=== PATIENT | female | born 1980 | race Caucasian/White ===

== ENCOUNTER 2025-06-21 15:20 | Emergency (ER) | payer BC, SELFPAY ==
--- NOTE | ~2025-06-21 | XR_ITS ---
CLINICAL HISTORY: palpitatins, dizzy 2 view chest x-ray Comparison: None provided Findings: The lungs are clear. Heart size is normal. No acute fracture. IMPRESSION: 1. No acute findings. This document has been electronically signed by: James Dickey MD on 06/21/2025 16:03:31
--- NOTE | ~2025-06-21 | CT_ITS ---
CLINICAL HISTORY: PE rule out CT angiography chest with contrast. 3D Postprocessing. Comparison: CR - XR CHEST 2V - 06/21/25 15:45 EDT Findings: The heart is normal size. RV/LV ratio is normal. Unremarkable thoracic aorta and great vessels. No aneurysm. No pulmonary artery filling defects. The visualized thyroid and mediastinum are unremarkable. Biapical cystic airspace disease. No consolidation or effusion. The upper abdomen is unremarkable. The bones are intact. IMPRESSION: 1. No pulmonary emboli. This document has been electronically signed by: Abraham Paulino MD on 06/21/2025 21:40:41
--- NOTE | 2025-06-21 15:24 | ECG_ITS ---
Test Reason : PALPITATIONS Blood Pressure : */* mmHG Vent. Rate : 81 BPM Atrial Rate : 81 BPM P-R Int : 128 ms QRS Dur : 62 ms QT Int : 358 ms P-R-T Axes : 89 75 60 degrees QTcB Int : 415 ms Normal sinus rhythm with sinus arrhythmia Right atrial enlargement Nonspecific ST abnormality Abnormal ECG No previous ECGs available Referred By: Rae Florence Electronically Signed By: CHRISTOPHER CAMARA MD
[2025-06-21 15:32] VITALS: BP 131/60; PULSE 87; RESP 18; TEMP 36.3; O2SAT 100; BMI 19.8
--- NOTE | 2025-06-21 15:34 | ED.GENADULT ---
[facility] - General Adult General Chief complaint: Arrhythmia/Palpitations Stated complaint: irregular heart beat, dizziness Time Seen by Provider: 06/21/25 18:04 Source: patient Mode of arrival: ambulatory Limitations: no limitations History of Present Illness ED Provider: Dr. Buck [facility] narrative: 44-year-old female no medical history presented hospital today for evaluation of 1 week of intermittent tachycardia palpitation lightheadedness. Patient has noted that her lightheadedness worsened when she stands up and ambulates. Patient is also having some nausea associated with the symptoms. Patient is complaining of aches between her shoulders. She had a recent travel to [place]. Related Data Previous Rx's ?Medication ?Instructions ?Recorded zolpidem 5 mg tablet (Ambien) 5 mg PO BEDTIME PRN insomnia #5 06/21/25 tabs Allergies Allergy/AdvReac Type Severity Reaction Status Date / Time No Known Allergies Allergy Verified 06/21/25 15:35 Review of Systems Review of Systems: Pertinent review of systems as mentioned in HPI. All other system otherwise negative. [facility] Past Medical History [facility] Narrative: Medical history as mentioned in [facility] Social History Social History Smoked in Last 30 Days: No Use of substances other than those prescribed or required for medical reasons: No Advance Directives: No Advance Directives Information Provided: No Patient : No Physical Exam ED Exam Exam: General: Pleasant, no distress, interacting appropriately Head: Normacephalic, atraumatic ENT: oral mucosa moist, neck supple, no tracheal deviation Cardiovascular: regular rate, regular rhythm, no murmurs, rubbing, gallops Respiratory: CTAB, no wheeze, rales, rhonchi Gastrointestinal: Soft, non distended, non tender, non guarding Extremities: No limb pain or swelling, no calf tenderness Neurological: Awake and alert, no facial droop noted Skin: Warm and dry Psychiatric: Appropriate mood and thoughts Vital Signs: Vital Signs - 24 hr 06/21/25 15:32 06/21/25 18:39 06/21/25 21:30 Temperature 97.4 F 98.0 F 97.8 F Pulse Rate 87 69 62 Respiratory Rate 18 16 16 Blood Pressure 131/60 102/65 104/52 L Pulse Oximetry 100 100 100 Oxygen Delivery Method Room Air Room Air Room Air BMI result Body Mass Index 19.8 Course Course Course Narrative: This is a Rapid Medical Examination (RME) performed by Alexis Florence PA-C in triage. Full HPI, ROS, assessment and treatment plan per primary provider in the Main ED. Hx: 44 year old female here for eval of palpitations and assoc dizziness. reports pain inbetween shoulder blades. Plan: labs, ekg, trop Medications Administered Discontinued Medications Generic Name Dose Route Start Last Admin Trade Name Wang PRN Reason Stop Dose Admin Sodium Chloride 1,000 mls @ 999 mls/hr 06/21/25 19:00 06/21/25 20:29 Ns IV 06/21/25 20:00 Infused .Q1H1M OMAR Infusion Iohexol 100 ml 06/21/25 20:04 06/21/25 20:04 Iohexol 350 Mg/Ml 100 Ml Infus..Btl IV 06/21/25 20:05 65 ml ONCE ONE Administration Medical Decision Making Medical Decision Making [facility] Narrative: 44-year-old female presented hospital today for a 1 week of intermittent chest pain and lightheadedness. EKG was obtained, ACS lab work we obtained including CBC chemistry troponin. Given patient's recent travel we will obtain a CTA of the chest. We will plan to rule out PE. Patient story and presentation does sound orthostasis. We will plan to give patient a bolus IV fluid here. No sign of STEMI on patient's EKG. Initial troponin is negative, chemistries unremarkable. CBC is unremarkable. CTA of the chest is negative, patient's 2nd troponin is negative. Patient states she did feel better after IV fluid and nausea medicine. We will plan to discharge patient home at this time. Patient is requesting a sleep aid. We will plan to prescribe short course of Ambien for the patient to take. Encouraged her to follow up with primary care doctor for a Holter monitor. Patient agrees and understands this plan all questions were addressed. Differential Diagnosis Differential Diagnoses: The differential diagnosis associated with the presentation includes STEMI, cardiac arrhythmia, ACS, PE Lab Data [facility] Lab Attestation statement: I reviewed the patient's lab results. 06/21/25 16:09 06/21/25 16:09 Labs: Lab Results 06/21/25 06/21/25 Range/Units 16:09 19:16 WBC 6.1 (4.8-10.8) X10*3/uL RBC 4.37 (4.20-5.50) X10*6/uL Hgb 12.3 (12.0-16.0) g/dl Hct 36.4 L (37.0-47.0) % MCV 83.3 (80.0-98.0) fL MCH 28.1 (27.0-33.0) pg MCHC 33.8 (31.0-35.0) g/dl RDW 13.8 (11.0-16.0) % Plt Count 265 (160-400) X10*3/uL MPV 9.1 L (9.4-12.3) fL Immature Gran % (Auto) 0.0 (0.0-0.4) % Neut % (Auto) 71.1 (45-73) % Lymph % (Auto) 22.4 (20-40) % Loving % (Auto) 5.7 (2-11) % Eos % (Auto) 0.5 (0-4) % Baso % (Auto) 0.3 (0-2) % Lymph # (Auto) 1.4 (1.2-4.9) X10*3/uL Loving # (Auto) 0.4 (0.1-1.2) X10*3/uL Eos # (Auto) 0.0 (0.0-0.4) X10*3/uL Baso # (Auto) 0.0 (0.0-0.2) X10*3/uL Abs Immat Gran (auto) 0.00 (0.00-0.03) X10*3/uL Absolute Neuts (auto) 4.3 (2.0-8.3) x10*3/uL Absolute Nucleated RBC 0.000 (0.0-0.012) X10*3/uL Nucleated RBC % (auto) 0.0 (0.0-0.2) /100WBC Sodium 143 (135-145) mmol/L Potassium 4.1 (3.3-5.1) mmol/L Chloride 106 (96-108) mmol/L Carbon Dioxide 23 (22-29) mmol/L Anion Gap 18 (12-20) BUN 15 (9-16) mg/dL Creatinine 0.77 (0.5-1.4) mg/dL Estim Creat Clear Calc 87.5 Estimated GFR > 60 Random Glucose 87 (60-115) mg/dL Calcium 9.5 (8.4-10.2) mg/dL Magnesium 2.0 (1.6-2.6) mg/dL Total Bilirubin 0.6 (0.0-1.0) mg/dL AST 17 (5-31) U/L ALT 8 (0-31) U/L Alkaline Phosphatase 64 (39-117) U/L Troponin I High Sens < 2.7 < 2.7 (<3.5-17.0) ng/L Total Protein 7.7 (6.5-8.0) g/dL Albumin 5.0 (3.5-5.0) g/dL Lipase 18 (8-78) U/L TSH 0.73 (0.32-4.0) uIU/mL Independent Interpretation I performed an independent interpretation of an: EKG, Plain X-Ray and CT Scan Radiology Impression Discussion of test interpretation with radiology: I have reviewed the radiologist's reading. Discharge Plan Discharge Clinical Impression: Palpitations Patient Disposition: Home, Self-Care Instructions: Heart Palpitations (ED) Additional Instructions: Ask your primary care doctor about a holter monitor. CT imaging did not show Pulmonary embolism. Your troponin is negative x2. Prescriptions: New zolpidem [Ambien] 5 mg tablet 5 mg PO BEDTIME PRN (Reason: insomnia) Qty: 5 0RF Print Language: Sinhala
[2025-06-21 16:12] LABS: MANUAL DIFF FLAG NO
[2025-06-21 16:14] LABS: Hematocrit 36.4 % (37.0-47.0); Hemoglobin 12.3 g/dl (12.0-16.0); Imm Gran Abs Auto 0.00 X10*3/uL (0.00-0.03); Imm Gran Pct Auto 0.0 % (0.0-0.4); Lymphocytes Absolute Auto 1.4 X10*3/uL (1.2-4.9); Mean Corpuscular HGB Conc 33.8 g/dl (31.0-35.0); Mean Corpuscular Hemoglobin 28.1 pg (27.0-33.0); Mean Corpuscular Volume 83.3 fL (80.0-98.0); NRBC Abs Auto 0.000 X10*3/uL (0.0-0.012); NRBC Pct Auto 0.0 /100WBC (0.0-0.2); Platelet Count 265 X10*3/uL (160-400); Red Blood Count 4.37 X10*6/uL (4.20-5.50); White Blood Count 6.1 X10*3/uL (4.8-10.8)
[2025-06-21 16:28] LABS: Alanine Aminotransferase 8 U/L (0-31); Albumin Level 5.0 g/dL (3.5-5.0); Alkaline Phosphatase 64 U/L (39-117); Anion Gap 18 (12-20); Aspartate Amino Transferase 17 U/L (5-31); Blood Urea Nitrogen 15 mg/dL (9-16); Calcium 9.5 mg/dL (8.4-10.2); Carbon Dioxide 23 mmol/L (22-29); Chloride 106 mmol/L (96-108); Creatinine Clr Calc Pharmacy 87.5; Estimated Glomerular Filt Rate > 60; Lipase 18 U/L (8-78); Magnesium 2.0 mg/dL (1.6-2.6); Potassium 4.1 mmol/L (3.3-5.1); Sodium 143 mmol/L (135-145); Total Protein 7.7 g/dL (6.5-8.0)
[2025-06-21 16:40] LABS: Troponin-I High Sensitivity < 2.7 ng/L (<3.5-17.0)
--- OUTSIDE RECORDS SUMMARY | 2025-06-21 17:26 | XMS_ITS ---
Author Name [facility] Organization Unknown Care Team Organization Name Specialty Phone Email Start Date End Da davi [facility] Termed, PROVIDER Primary Care 08/29/202205/22
--- OUTSIDE RECORDS SUMMARY | 2025-06-21 17:26 | XMS_ITS | Clinical Summary ---
Author Organization [address] Address [address] [place] [id number] Phone Care Team Providers Care Launderer Hand Name Role Phone Shahriar Hernandez MD Primary Care Provider Surgical History Surgery Date Site/Laterality Comments OTHER SURGICAL HISTORY PROCEDURE: DENIES PREVIOUS SURGERY Medical History Medical History Date Comments History of gestational diabetes 08/15/2017 DX:History of gestational diabetes; COMMENT: With first History of mastitis DX:History o f mastitis Ocular migraine 08/15/2017 DX:Ocular migrai ne Family History Medical History Relation Name Comments COPD Father COPD Maternal Grandfather Hypertension Mother Liver disease Paternal Grandfather Heart attack Paternal Grandmother Breast cancer Neg Hx Relation Name Status Comments Father Maternal Grandfather Maternal Grandmother Alive Mother Paternal Grandfather Paternal Grandmother Social History Tobacco Use Types Packs/Day Years Used Date Smoking Tobacco: Former Smokeless Tobacco: Never Alcohol Use Standard Drinks/Week Comments Yes 0 (1 standard drink = 0.6 oz pur e alcohol) Comments Unknown Sex and Gender Information Value Date Recorded Sex Assigned at Not on file Legal Sex Female 5:16 AM EST Gender Identity Not on file Sexual Orientation Not on file Obstetrics History Para Term AB IAB SAB Ectopic Multiple Livin g Live Births 2 2 2 2 Date Outcome GA Total Labor Labor/2nd/3rd Weight Sex Type Anes PTL Vandana A1 A5 Name Clin Term Term Plan of Treatment Health Maintenance Due Date Last Done Comments Hepatitis B Vaccines (1 of 3 - 19+ 3-dose series) 1997 Colorectal Cancer Screening: Colonoscopy 10/01/2022 HIV Screening 10/01/2022 Hepatitis C Screening 10/01/2022 Social Influencers of Health Screening 10/01/2022 DTaP,Tdap,and Td Vaccines (2 - Td or Tdap) 05/14/2023 05/14/2013 COVID-19 Vaccine (5 - season) 2024 08/25/2022, 08/03/2021, 12/08/2020, Additional history exists Cervical Cancer Screening: Pap Smear 10/05/2024 10/05/2021 Depression Screening 10/22/2024 Influenza Vaccine (#1) 2025 , 08/25/2022, 07/24/2021, Additional history exists Breast Cancer Screening 02/27/2027 02/28/20, 02/14/2024, 02/14/2024, Additional history exists HIB Vaccines Aged Out No longer eligi ble based on patient's age to complete this topic HPV Vaccines Aged Out No longer eligi ble based on patient's age to complete this topic Hepatitis A Vaccines Aged Out No long er eligible based on patient's age to complete this topic IPV Vaccines Aged Out No longer eligi ble based on patient's age to complete this topic MMR Vaccines Aged Out No longer eligi ble based on patient's age to complete this topic Meningococcal ACWY Vaccine Aged Out N o longer eligible based on patient's age to complete this topic Meningococcal B Vaccine Aged Out No l onger eligible based on patient's age to complete this topic Pneumococcal Vaccine: Pediatrics (0 to 5 Years) and At-Risk Patients (6 to 49 Years) Aged Out No longer eligible based on patient's age to complete this topic RSV Immunization Patients Under 20 months Aged Out No longer eligible based on patient's age to complete this topic Varicella Vaccines Aged Out No longer eligible based on patient's age to complete this topic Procedures Procedure Name Priority Date/Time Associated Diagnosis Comments MG MAMMO DIGITAL SCREENING W RONNIE BILAT Routine 02/27/2025 10:21 AM EDT Encounter for screening mammogram for breast cancer PAP SMEAR Routine 10/05/2021 from Last 3 Months or Most Recently Relevant to Health Maintenance Results * MG Mammo Digital Screening w Ronnie bilat (02/27/2025 10:21 AM EDT) Anatomical Region Laterality Modality Breast Bilateral Mammography 02/27/2025 5:05 PM EDT Impressions 02/27/2025 5:07 PM EDT No mammographic evidence for malignancy. BI-RADS CATEGORY: 1 - NEGATIVE RECOMMENDATION: Screening bilateral mammogram is recommended in 1 year. Mammo Location: [facility], [address] [place] [address], [id number], . -------- FINAL REPORT -------- Dictated By: Flavia France Dictated Date: 02/27/2025 17:05 ET Assigned Physician: Flavia France Reviewed and Electronically Signed By: Flavia France Signed Date: 02/27/2025 17:07 ET Workstation ID: [id number] Transcribed By: Self Edit Transcribed Date: 02/27/2025 17:05 ET Narrative 02/27/2025 5:07 PM EDT Bilateral screening mammogram. CLINICAL: 44 years old, Female, routine annual exam. COMPARISON: Prior screening mammograms, latest from 02/14/2024. TECHNIQUE: Bilateral MLO and CC views were obtained digitally with 2 D C views and 3-D mammogram (digital breast tomosynthesis). Computer-aided detection was utilized in evaluation of this exam (CAD). FINDINGS: There is no evidence of suspicious mass or architectural distortion. No worrisome calcifications are evident. There has been no significant change from prior exam(s). BREAST DENSITY: C - The breasts are heterogeneously dense which may obscure small masses. Procedure Note Flavia France MD - 02/27/2025 Bilateral screening mammogram. CLINICAL: 44 years old, Female, routine annual exam. COMPARISON: Prior screening mammograms, latest from 02/14/2024. TECHNIQUE: Bilateral MLO and CC views were obtained digitally with 2 D Cviews and 3-D mammogram (digital breast tomosynthesis). Computer-aideddetection was utilized in evaluation of this exam (CAD). FINDINGS: There is no evidence of suspicious mass or architectural distortion. Noworrisome calcifications are evident. There has been no significantchange from prior exam(s). BREAST DENSITY: C - The breasts are heterogeneously dense which mayobscure small masses. IMPRESSION: No mammographic evidence for malignancy. BI-RADS CATEGORY: 1 - NEGATIVE RECOMMENDATION: Screening bilateral mammogram is recommended in 1 year. Mammo Location: [facility], [address] [place] [address], [id number], . -------- FINAL REPORT -------- Dictated By: Flavia France Dictated Date: 02/27/2025 17:05 ET Assigned Physician: Flavia France Reviewed and Electronically Signed By: Flavia Farnce Signed Date: 02/27/2025 17:07 ET Workstation ID: [id number] Transcribed By: Self Edit Transcribed Date: 02/27/2025 17:05 ET Kristel STEVENS IM BI PROCEDURES Final Resul t * Pap smear (10/05/2021) 10/05/2021 Narrative HISTORICAL TESTING LAB RESULTING AGENCY - 10/27/2021 7:35 AM EST [id number] THINPREP PAP: NEGATIVE FOR SQUAMOUS INTRAEPITHELIAL LESION AND MALIGNANCY . NOTE: ADEQUACY EVALUATED SATISFACTORY FOLLOWING REPROCESSING WITH THE ACID WASH PROCEDURE. NOTE: THE PAP TEST IS A SCREENING TEST WITH AN INHERENT FALSE NEGATIVE RATE. NOTE: THIS PAP TEST COULD NOT BE IMAGED UTILIZING THE IMAGING SYSTEM AND REQUIRED MANUAL REVIEW. JAHAIRA ARELLANO(ASCP) (CASE ELECTRONICALLY SIGNED 10 26 2021) RESULT OF APTIMA HIGH RISK HPV ASSAY: HIGH RISK HPV: NEGATIVE (SEROTYPES 16,18,31,33,35,39,45,51,52,56,58,59,66,68) COMPLETED ON 2021-10-07 ADEQUACY: SATISFACTORY ENDOCERVICAL/TRANSFORMATION ZONE COMPONENT PRESENT. SOURCE: THINPREP PAP HPV ANY DX: REFLEX 16 AND 18, CERVICAL, IMAGED CLINICAL INFORMATION: HPV ANY DIAGNOSIS. LMP 09/26/21, Z12.4 us Kristel Sherman CN LAB CYTOLOGY ORDERABLES Final Result HISTORICAL TESTING LAB RESULTING AGENCY from Last 3 Months or Most Recently Relevant to Health Maintenance Insurance [facility] Care Teams Launderer Hand Relationship Specialty Start Date End Date Shahriar Hernandez MD PCP - General Internal Medicine 06/26/17
[2025-06-21 18:39] VITALS: BP 102/65; PULSE 69; RESP 16; TEMP 36.7; O2SAT 100
[2025-06-21 19:32] LABS: Thyroid Stimulating Hormone 0.73 uIU/mL (0.32-4.0)
[2025-06-21 19:45] LABS: Troponin-I High Sensitivity < 2.7 ng/L (<3.5-17.0)
--- NOTE | 2025-06-21 19:48 | PC.NURSE ---
this rn assumed care of pt @ 1900. 20g iv placed in L ac pt tolerated well initially. pt began feeling pressure in iv new iv placed in R AC pt tolerated well. ivf infusing previous iv removed
[2025-06-21] MEDS: iohexoL 350 MG/ML 100 ML INFUS..BTL IV (20:04)
[2025-06-21 21:30] VITALS: BP 104/52; PULSE 62; RESP 16; TEMP 36.6; O2SAT 100
[2025-06-21 22:14] VITALS: BP 104/52; PULSE 62; RESP 16; TEMP 36.6; O2SAT 100
== END 2025-06-21 22:15 | disposition home or self-care (01) ==
PROVIDERS: Physician Assistant Medical; Emergency Provider Student in an Organized Health Care Education/Training Program
DX: R00.2 Palpitations (principal); R42 Dizziness and giddiness; R11.0 Nausea; R07.9 Chest pain, unspecified; Z79.899 Other long term (current) drug therapy
CPT/HCPCS: 36415; 71046; 71275; 80053; 83690; 83735; 84443; 84484; 85025; 93005; 96360; 99284; 99285; Q9967

== ENCOUNTER → 2025-06-21 15:24 | Outpatient (BNV) | payer BC, SELFPAY | PROVIDERS: Emergency Provider Student in an Organized Health Care Education/Training Program; Visit Provider Internal Medicine Cardiovascular Disease | DX: I51.7 Cardiomegaly (principal) | CPT/HCPCS: 93010 ==

== ENCOUNTER → 2025-06-21 15:35 | Outpatient (BNV) | payer BC, SELFPAY | PROVIDERS: Visit Provider Radiology Diagnostic Radiology | DX: R00.2 Palpitations (principal); R42 Dizziness and giddiness | CPT/HCPCS: 71046; 71275 ==